=== PATIENT | female | born 1985 | race Caucasian/White ===

== ENCOUNTER 2016-10-31 17:18 | Emergency (ER) | payer OTHER ==
[2016-10-31 17:48] LABS: BASOPHILS 0.7 % (0.0-2.0); EOSINOPHILS 6.6 % (0-7); HEMATOCRIT 37.9 % (36.0-48.0); HEMOGLOBIN 12.2 g/dL (12-16); IMMATURE GRANULOCYTES 0.2 % (0-5); LYMPHOCYTES 26.5 % (15-50); MCH 30.2 pg (26.0-34.0); MCHC 32.2 g/dL (31.0-37.0); MCV 93.8 fL (80.0-100.0); MEAN PLATELET VOLUME 10.9 fL (7.4-10.4); MONOCYTES 9.1 % (2-11); NEUTROPHILS 56.9 % (40-80); PLATELET COUNT 277 10x3/uL (130-400); RBC 4.04 10x6/uL (4.00-5.40); RDW 13.8 % (11.5-14.5); WBC 9.8 10x3/uL (4.8-10.8)
[2016-10-31 18:01] LABS: ALBUMIN 3.7 g/dL (3.4-5.0); ALKALINE PHOSPHATASE 52 U/L (46-116); ALT (SGPT) 25 U/L (10-68); CALC OSMOLALITY 275 mosm/kg (275-300); CALCIUM 8.2 mg/dL (8.5-10.1); CARBON DIOXIDE 24.8 mmol/L (21.0-32.0); CHLORIDE - SERUM 105 mmol/L (98-107); CREATININE - SERUM 0.6 mg/dL (0.6-1.3); GLUCOSE 78 mg/dL (74-106); POTASSIUM - SERUM 3.4 mmol/L (3.5-5.1); SODIUM 139 mmol/L (136-145); UREA NITROGEN 11 mg/dL (7-18); eGFR NON AFRICAN AMERICAN > 90 mL/min (90-120)
[2016-10-31 20:46] LABS: AMYLASE - SERUM 42 U/L (25-115); LIPASE 198 U/L (73-393); PRO BNP 87 pg/mL (0-125)
[2016-10-31 20:47] LABS: TROPONIN-I < 0.017 ng/mL (0.000-0.060)
[2016-10-31 21:25] LABS: HCG URINE NEGATIVE (NEGATIVE)
[2016-10-31 21:26] LABS: APPEARANCE CLEAR (CLEAR); BILIRUBIN NEGATIVE (NEGATIVE); COLOR YELLOW (YELLOW); GLUCOSE NEGATIVE (NEGATIVE); KETONE NEGATIVE (NEGATIVE); LEUKOCYTE ESTERASE NEGATIVE (NEGATIVE); NITRITE NEGATIVE (NEGATIVE); PROTEIN NEGATIVE (NEGATIVE); SPECIFIC GRAVITY 1.015 (1.005-1.020); UROBILINOGEN NORMAL (NORMAL)
== END 2016-10-31 23:55 | disposition home or self-care (01) ==
LOC: D.ER 17:18
PROVIDERS: Family Medicine; Surgery
DX: R07.89 Other chest pain (principal); E87.6 Hypokalemia

== ENCOUNTER 2017-03-22 22:04 | Emergency (ER) | payer OTHER | END 2017-03-23 00:04 | disposition home or self-care (01) | LOC: D.ER 22:04 | DX: B34.9 Viral infection, unspecified (principal); R10.9 Unspecified abdominal pain; R53.83 Other fatigue; R11.2 Nausea with vomiting, unspecified; F17.200 Nicotine dependence, unspecified, uncomplicated ==